=== PATIENT | male | born 1940 | race Caucasian/White ===

== ENCOUNTER 2022-10-15 10:42 | Emergency (ER) | payer MEDICARE ==
[~2022-10-15] VITALS: Ht 177.8 cm; Wt 98.9 kg
[2022-10-15] MEDS ORDERED: ALLOPURINOL100 MG PO (11:03)
[2022-10-15] MEDS ORDERED: LOSARTAN POTAS100 MG PO (11:17)
[2022-10-15] MEDS ORDERED: AMLODIPINE BESY10 MG PO (11:17)
[2022-10-15] MEDS ORDERED: DOXYCYCLINE HY100 MG PO (12:10)
[2022-10-15 12:43] VITALS: BP 148/77
== END 2022-10-15 12:53 | disposition home or self-care (01) ==
LOC: ED 10:42
DX: L03.031 Cellulitis of right toe (principal); I10 Essential (primary) hypertension; Z96.651 Presence of right artificial knee joint; Z79.899 Other long term (current) drug therapy
CPT/HCPCS: 73660; 93971